=== PATIENT | male | born 1955 | race African-American/Black ===

== ENCOUNTER 2017-05-12 10:37 | Outpatient (CLI) | payer OTHER ==
[~2017-05-12 10:37] MED LIST: HYDR25TA4 PO; KCL10CCR PO; LISI10TA2 PO; LOSA1TAB23 PO; PROP80CA4 PO
== END 2017-05-12 10:45 | disposition home or self-care (01) ==
LOC: SLEEP 10:37
PROVIDERS: ATTEND Family Medicine
DX: G47.33 Obstructive sleep apnea (adult) (pediatric) (principal)

== ENCOUNTER 2017-05-28 20:04 | Outpatient (CLI) | payer OTHER | END 2017-05-29 06:27 | disposition home or self-care (01) | LOC: SLEEP 20:04 | PROVIDERS: ATTEND Nurse Practitioner | DX: G47.33 Obstructive sleep apnea (adult) (pediatric) (principal) | CPT/HCPCS: 95811 ==

== ENCOUNTER → 2017-06-06 | Outpatient (CLI) | payer OTHER ==
[2017-06-06 10:36] LABS: BASOPHILS % (AUTO) 1 % (0-10); EOSINOPHILS # (AUTO) 0.2 10^3/uL (0.0-0.3); EOSINOPHILS % (AUTO) 3 % (0-10); HEMATOCRIT 48 % (40-54); HEMOGLOBIN 15.5 G/DL (13.3-17.7); LYMPHOCYTES # (AUTO) 2.3 X 10^3 (1.0-4.0); LYMPHOCYTES % (AUTO) 40 % (12-44); MEAN CORPUSCULAR HEMOGLOBIN 30 PG (25-34); MEAN CORPUSCULAR HGB CONC 32 G/DL (32-36); MEAN CORPUSCULAR VOLUME 91 FL (80-99); MEAN PLATELET VOLUME 10.9 FL (7.4-10.4); MONOCYTES # (AUTO) 0.6 X 10^3 (0.0-1.0); MONOCYTES % (AUTO) 11 % (0-12); NEUTROPHILS # (AUTO) 2.5 X 10^3 (1.8-7.8); NEUTROPHILS % (AUTO) 45 % (42-75); PLATELET COUNT 211 10^3/uL (130-400); RED BLOOD COUNT 5.23 10^6/uL (4.35-5.85); RED CELL DISTRIBUTION WIDTH 14.3 % (10.0-14.5); WHITE BLOOD COUNT 5.7 10^3/uL (4.3-11.0)
[2017-06-06 10:53] LABS: ALANINE AMINOTRANSFERASE 28 U/L (0-55); ALBUMIN 3.7 GM/DL (3.2-4.5); ALKALINE PHOSPHATASE 50 U/L (40-136); BILIRUBIN,TOTAL 0.5 MG/DL (0.1-1.0); BUN/CREATININE RATIO 18; CARBON DIOXIDE 25 MMOL/L (21-32); CHLORIDE 106 MMOL/L (98-107); CHOLESTEROL 204 MG/DL (< 200); CREATININE SERUM 0.87 MG/DL (0.60-1.30); GFR ESTIMATED > 60; GLUCOSE 104 MG/DL (70-105); HDL CHOLESTEROL 36 MG/DL (40-60); MAGNESIUM 1.7 MG/DL (1.8-2.4); POTASSIUM 3.8 MMOL/L (3.6-5.0); SODIUM 142 MMOL/L (135-145); TOTAL PROTEIN 7.1 GM/DL (6.4-8.2); TRIGLYCERIDES 153 MG/DL (<150); VLDL CHOLESTEROL 31 MG/DL (5-40)
== END ==
LOC: EDBD → LAB 10:00
PROVIDERS: ATTEND Nurse Practitioner Family
DX: I47.1 Supraventricular tachycardia (principal); R94.31 Abnormal electrocardiogram [ECG] [EKG]; I10 Essential (primary) hypertension; M79.89 Other specified soft tissue disorders
CPT/HCPCS: 36415; 80053; 80061; 83735; 85025

== ENCOUNTER → 2017-06-08 | Outpatient (CLI) | payer OTHER | LOC: CARD 09:53 | PROVIDERS: ATTEND Nurse Practitioner Family | DX: I47.1 Supraventricular tachycardia (principal); R94.31 Abnormal electrocardiogram [ECG] [EKG]; I10 Essential (primary) hypertension; M79.89 Other specified soft tissue disorders | CPT/HCPCS: 93306 ==

== ENCOUNTER → 2017-06-09 | Outpatient (CLI) | payer OTHER ==
[~2017-06-09] MED LIST changes: +REGADENOSON 0.4 MG/5 ML SYR (LEXISCAN) IV ONE
[2017-06-09] MEDS: CATHETER FLUSH 10 ML SYR IV PRN ×2 (08:09→09:33)
[2017-06-09 09:31] VITALS: BP 178/105
== END ==
LOC: CARD 07:27 → EDBD 08:00
PROVIDERS: ATTEND Nurse Practitioner Family
DX: I47.1 Supraventricular tachycardia (principal); R94.31 Abnormal electrocardiogram [ECG] [EKG]; I10 Essential (primary) hypertension; M79.89 Other specified soft tissue disorders
CPT/HCPCS: 78452; 93017

== ENCOUNTER → 2017-10-05 | Outpatient (RCR) | payer OTHER ==
[~2017-10-05] MED LIST changes: -REGADENOSON 0.4 MG/5 ML SYR (LEXISCAN) IV ONE
== END | disposition home or self-care (01) ==
LOC: CR3 09-05 08:00
PROVIDERS: ATTEND Psychiatry & Neurology Neurology
DX: Z29.8 Encounter for other specified prophylactic measures (principal)

== ENCOUNTER 2017-10-27 08:00 | Outpatient (RCR) | payer OTHER | END 2017-11-06 | disposition home or self-care (01) | LOC: CR3 08:00 | PROVIDERS: ATTEND Psychiatry & Neurology Neurology | DX: Z29.8 Encounter for other specified prophylactic measures (principal) ==

== ENCOUNTER → 2017-12-21 | Outpatient (RCR) | payer OTHER | END | disposition home or self-care (01) | LOC: CR3 11-21 08:30 | PROVIDERS: ATTEND Psychiatry & Neurology Neurology | DX: Z29.8 Encounter for other specified prophylactic measures (principal) ==

== ENCOUNTER 2018-01-19 06:00 | Outpatient (RCR) | payer OTHER | END 2018-01-21 | disposition home or self-care (01) | LOC: CR3 06:00 | PROVIDERS: ATTEND Psychiatry & Neurology Neurology | DX: Z29.8 Encounter for other specified prophylactic measures (principal) ==

== ENCOUNTER → 2018-02-22 | Outpatient (RCR) | payer OTHER | END | disposition home or self-care (01) | LOC: CR3 01-23 08:00 | PROVIDERS: ATTEND Psychiatry & Neurology Neurology | DX: Z29.8 Encounter for other specified prophylactic measures (principal) ==

== ENCOUNTER 2018-03-24 18:01 | Outpatient (RCR) | payer OTHER | END 2018-03-25 | disposition home or self-care (01) | LOC: CR3 18:01 | PROVIDERS: ATTEND Psychiatry & Neurology Neurology | DX: Z29.8 Encounter for other specified prophylactic measures (principal) ==

== ENCOUNTER → 2018-03-27 | Outpatient (CLI) | payer OTHER | LOC: LAB 10:01 | PROVIDERS: ATTEND Family Medicine | DX: Z12.5 Encounter for screening for malignant neoplasm of prostate (principal) | CPT/HCPCS: 36415; 84153 ==

== ENCOUNTER 2018-04-24 08:18 | Outpatient (RCR) | payer OTHER | END 2018-04-26 | disposition home or self-care (01) | LOC: CR3 08:18 | PROVIDERS: ATTEND Psychiatry & Neurology Neurology | DX: Z29.8 Encounter for other specified prophylactic measures (principal) ==

== ENCOUNTER 2018-06-07 08:13 | Outpatient (RCR) | payer OTHER | END 2018-06-08 | disposition home or self-care (01) | LOC: CR3 08:13 | PROVIDERS: ATTEND Psychiatry & Neurology Neurology | DX: Z29.8 Encounter for other specified prophylactic measures (principal) ==

== ENCOUNTER 2018-07-07 08:21 | Outpatient (RCR) | payer OTHER | END 2018-07-09 | disposition home or self-care (01) | LOC: CR3 08:21 | PROVIDERS: ATTEND Psychiatry & Neurology Neurology | DX: Z29.8 Encounter for other specified prophylactic measures (principal) ==

== ENCOUNTER 2018-08-09 08:08 | Outpatient (RCR) | payer OTHER | END 2018-08-10 | disposition home or self-care (01) | LOC: CR3 08:08 | PROVIDERS: ATTEND Psychiatry & Neurology Neurology | DX: Z29.8 Encounter for other specified prophylactic measures (principal) ==

== ENCOUNTER 2018-09-08 08:10 | Outpatient (RCR) | payer OTHER | END 2018-09-10 | disposition home or self-care (01) | LOC: CR3 08:10 | PROVIDERS: ATTEND Psychiatry & Neurology Neurology | DX: Z29.8 Encounter for other specified prophylactic measures (principal) ==

== ENCOUNTER → 2018-10-06 | Outpatient (CLI) | payer MEDICARE, OTHER ==
[2018-10-06 10:16] LABS: ALANINE AMINOTRANSFERASE 32 U/L (0-55); ALBUMIN 4.1 GM/DL (3.2-4.5); ALKALINE PHOSPHATASE 56 U/L (40-136); BILIRUBIN,TOTAL 0.6 MG/DL (0.1-1.0); BUN/CREATININE RATIO 19; CALCIUM 9.5 MG/DL (8.5-10.1); CARBON DIOXIDE 22 MMOL/L (21-32); CHLORIDE 110 MMOL/L (98-107); CHOLESTEROL 204 MG/DL (< 200); CREATININE SERUM 1.08 MG/DL (0.60-1.30); GFR ESTIMATED > 60; GLUCOSE 104 MG/DL (70-105); HDL CHOLESTEROL 38 MG/DL (40-60); POTASSIUM 4.1 MMOL/L (3.6-5.0); SODIUM 142 MMOL/L (135-145); TOTAL PROTEIN 7.7 GM/DL (6.4-8.2); TRIGLYCERIDES 112 MG/DL (<150); VLDL CHOLESTEROL 22 MG/DL (5-40)
== END ==
LOC: LAB 09:41
PROVIDERS: ATTEND Nurse Practitioner Family
DX: I10 Essential (primary) hypertension (principal); I70.59 Other atherosclerosis of nonautologous biological bypass graft(s) of the extremities
CPT/HCPCS: 36415; 80053; 80061

== ENCOUNTER → 2018-10-11 | Outpatient (RCR) | payer OTHER | END | disposition home or self-care (01) | LOC: CR3 09-11 09:51 | PROVIDERS: ATTEND Psychiatry & Neurology Neurology | DX: Z29.8 Encounter for other specified prophylactic measures (principal) ==

== ENCOUNTER 2018-11-10 09:31 | Outpatient (RCR) | payer MEDICARE, OTHER | END 2018-11-11 | disposition home or self-care (01) | LOC: CR3 09:31 | PROVIDERS: ATTEND Psychiatry & Neurology Neurology | DX: Z29.8 Encounter for other specified prophylactic measures (principal) ==

== ENCOUNTER → 2018-11-30 | Outpatient (CLI) | payer MEDICARE, OTHER ==
[2018-11-30 10:18] LABS: ALANINE AMINOTRANSFERASE 52 U/L (0-55); ALBUMIN 3.8 GM/DL (3.2-4.5); ALKALINE PHOSPHATASE 56 U/L (40-136); BILIRUBIN,TOTAL 0.7 MG/DL (0.1-1.0); BUN/CREATININE RATIO 14; CALCIUM 9.3 MG/DL (8.5-10.1); CARBON DIOXIDE 25 MMOL/L (21-32); CHLORIDE 108 MMOL/L (98-107); CHOLESTEROL 160 MG/DL (< 200); CREATININE SERUM 1.12 MG/DL (0.60-1.30); GFR ESTIMATED > 60; GLUCOSE 101 MG/DL (70-105); HDL CHOLESTEROL 31 MG/DL (40-60); POTASSIUM 3.9 MMOL/L (3.6-5.0); SODIUM 143 MMOL/L (135-145); TOTAL PROTEIN 7.6 GM/DL (6.4-8.2); TRIGLYCERIDES 93 MG/DL (<150); VLDL CHOLESTEROL 19 MG/DL (5-40)
== END ==
LOC: LAB 09:43
PROVIDERS: ATTEND Nurse Practitioner Family
DX: I10 Essential (primary) hypertension (principal); E78.5 Hyperlipidemia, unspecified; G47.33 Obstructive sleep apnea (adult) (pediatric); I73.9 Peripheral vascular disease, unspecified; E66.8 Other obesity
CPT/HCPCS: 36415; 80053; 80061

== ENCOUNTER → 2018-12-13 | Outpatient (RCR) | payer MEDICARE, OTHER | END | disposition home or self-care (01) | LOC: CR3 11-13 08:00 | PROVIDERS: ATTEND Psychiatry & Neurology Neurology | DX: Z29.8 Encounter for other specified prophylactic measures (principal) ==

== ENCOUNTER 2019-01-11 06:00 | Outpatient (RCR) | payer MEDICARE, OTHER | END 2019-01-13 | disposition home or self-care (01) | LOC: CR3 06:00 | PROVIDERS: ATTEND Psychiatry & Neurology Neurology | DX: Z00.00 Encounter for general adult medical examination without abnormal findings (principal); Z29.8 Encounter for other specified prophylactic measures ==

== ENCOUNTER → 2019-02-14 | Outpatient (RCR) | payer MEDICARE, OTHER | END | disposition home or self-care (01) | LOC: CR3 01-15 08:30 | PROVIDERS: ATTEND Psychiatry & Neurology Neurology | DX: Z00.00 Encounter for general adult medical examination without abnormal findings (principal); Z29.8 Encounter for other specified prophylactic measures ==

== ENCOUNTER 2019-03-16 08:31 | Outpatient (RCR) | payer MEDICARE, OTHER | END 2019-03-17 | disposition home or self-care (01) | LOC: CR3 08:31 | PROVIDERS: ATTEND Psychiatry & Neurology Neurology | DX: Z29.8 Encounter for other specified prophylactic measures (principal) ==

== ENCOUNTER → 2019-04-18 | Outpatient (RCR) | payer MEDICARE, OTHER | END | disposition home or self-care (01) | LOC: CR3 03-19 08:00 | PROVIDERS: ATTEND Psychiatry & Neurology Neurology | DX: Z29.8 Encounter for other specified prophylactic measures (principal) ==

== ENCOUNTER 2019-05-18 08:25 | Outpatient (RCR) | payer MEDICARE, OTHER | END 2019-05-19 | disposition home or self-care (01) | LOC: CR3 08:25 | PROVIDERS: ATTEND Psychiatry & Neurology Neurology | DX: Z29.8 Encounter for other specified prophylactic measures (principal) ==

== ENCOUNTER → 2019-06-20 | Outpatient (RCR) | payer MEDICARE, OTHER | END | disposition home or self-care (01) | LOC: CR3 05-21 08:36 | PROVIDERS: ATTEND Psychiatry & Neurology Neurology | DX: Z29.8 Encounter for other specified prophylactic measures (principal) ==

== ENCOUNTER 2019-07-18 08:24 | Outpatient (RCR) | payer MEDICARE, OTHER | END 2019-07-21 | disposition home or self-care (01) | LOC: CR3 08:24 | PROVIDERS: ATTEND Psychiatry & Neurology Neurology | DX: Z29.8 Encounter for other specified prophylactic measures (principal) ==

== ENCOUNTER 2019-08-13 09:08 | Outpatient (RCR) | payer MEDICARE, OTHER ==
--- NOTE | 2019-08-14 17:22 | NUR ---
CONTACTED PT FOR INFECTIOUS DISEASE SCREENING (PER ADMINISTRATION ORDERS); PT STATED NO COUGH OR FEVER IN PAST 14 DAYS; OR TRAVELING OUTSIDE [place]
== END 2019-08-22 | disposition home or self-care (01) ==
LOC: CR3 09:08
PROVIDERS: ATTEND Psychiatry & Neurology Neurology
DX: Z29.8 Encounter for other specified prophylactic measures (principal)

== ENCOUNTER → 2019-12-21 | Outpatient (CLI) | payer MEDICARE, OTHER ==
[2019-12-21 08:26] LABS: BASOPHILS % (AUTO) 1 % (0-10); EOSINOPHILS # (AUTO) 0.2 10^3/uL (0.0-0.3); EOSINOPHILS % (AUTO) 4 % (0-10); HEMATOCRIT 43 % (40-54); HEMOGLOBIN 14.3 G/DL (13.3-17.7); LYMPHOCYTES # (AUTO) 1.8 X 10^3 (1.0-4.0); LYMPHOCYTES % (AUTO) 31 % (12-44); MEAN CORPUSCULAR HEMOGLOBIN 31 PG (25-34); MEAN CORPUSCULAR HGB CONC 33 G/DL (32-36); MEAN CORPUSCULAR VOLUME 93 FL (80-99); MEAN PLATELET VOLUME 10.8 FL (7.4-10.4); MONOCYTES # (AUTO) 1.1 X 10^3 (0.0-1.0); MONOCYTES % (AUTO) 20 % (0-12); NEUTROPHILS # (AUTO) 2.6 X 10^3 (1.8-7.8); NEUTROPHILS % (AUTO) 45 % (42-75); PLATELET COUNT 183 10^3/uL (130-400); RED CELL DISTRIBUTION WIDTH 15.5 % (10.0-14.5); WHITE BLOOD COUNT 5.7 10^3/uL (4.3-11.0)
[2019-12-21 08:40] LABS: CHLORIDE 110 MMOL/L (98-107); POTASSIUM 3.7 MMOL/L (3.6-5.0); SODIUM 142 MMOL/L (135-145)
[2019-12-21 08:41] LABS: CALCIUM 9.3 MG/DL (8.5-10.1)
[2019-12-21 08:42] LABS: GLUCOSE 109 MG/DL (70-105); TOTAL PROTEIN 7.9 GM/DL (6.4-8.2); TRIGLYCERIDES 77 MG/DL (<150); VLDL CHOLESTEROL 15 MG/DL (5-40)
[2019-12-21 08:43] LABS: CARBON DIOXIDE 21 MMOL/L (21-32)
[2019-12-21 08:44] LABS: BILIRUBIN,TOTAL 1.1 MG/DL (0.1-1.0)
[2019-12-21 08:46] LABS: ALKALINE PHOSPHATASE 73 U/L (40-136); GFR ESTIMATED > 60
[2019-12-21 08:47] LABS: BUN/CREATININE RATIO 16; CHOLESTEROL 149 MG/DL (< 200)
[2019-12-21 08:48] LABS: HDL CHOLESTEROL 32 MG/DL (40-60)
[2019-12-21 08:49] LABS: ALANINE AMINOTRANSFERASE 18 U/L (0-55); MAGNESIUM 1.8 MG/DL (1.6-2.4)
[2019-12-21 08:52] LABS: ANISOCYTOSIS SLIGHT; EOSINOPHILS % (MANUAL) 4 %; LYMPHOCYTES % (MANUAL) 30 %; MONOCYTES % (MANUAL) 16 %; NEUTROPHILS % (MANUAL) 50 %
[2019-12-21 08:57] LABS: ERYTHROCYTE SEDIMENTATION RATE 8 MM/HR (0-30)
== END ==
LOC: LAB 08:00
PROVIDERS: ATTEND Internal Medicine Cardiovascular Disease
DX: I48.0 Paroxysmal atrial fibrillation (principal); I10 Essential (primary) hypertension; R94.31 Abnormal electrocardiogram [ECG] [EKG]; R06.09 Other forms of dyspnea; M79.89 Other specified soft tissue disorders; R03.0 Elevated blood-pressure reading, without diagnosis of hypertension
CPT/HCPCS: 36415; 80053; 80061; 83735; 84443; 85007; 85027; 85652

== ENCOUNTER → 2019-12-25 | Outpatient (CLI) | payer MEDICARE, OTHER | LOC: CARD 10:41 | PROVIDERS: ATTEND Internal Medicine Cardiovascular Disease | DX: I48.0 Paroxysmal atrial fibrillation (principal); I11.9 Hypertensive heart disease without heart failure; M79.89 Other specified soft tissue disorders; R94.31 Abnormal electrocardiogram [ECG] [EKG]; R06.09 Other forms of dyspnea | CPT/HCPCS: 93225; 93226; 93306 ==

== ENCOUNTER → 2019-12-28 | Outpatient (CLI) | payer MEDICARE, OTHER ==
[~2019-12-28] VITALS: Ht 175 cm; Wt 147.0 kg
[~2019-12-28] MED LIST changes: +CATHETER FLUSH 10 ML SYR IV PRN; +REGADENOSON 0.4 MG/5 ML SYR (LEXISCAN) IV ONE
[2019-12-28 08:58] VITALS: BP 158/116
--- NOTE | 2020-01-01 13:18 | STRESS TEST ---
DATE OF SERVICE: 12/28/2019 RESTING AND POST REGADENOSON TECHNETIUM-99M TETROFOSMIN SPECT CT IMAGING ORDERING PHYSICIAN: Dr. Siu. PRIMARY PHYSICIAN: Dr. Nicole. CLINICAL DIAGNOSES: Shortness of breath, abnormal electrocardiogram and paroxysmal atrial fibrillation. Baseline images were carried out after injection of 10.74 mCi of technetium-99m Tetrofosmin. This was followed by 0.4 mg Regadenoson and 31.4 mCi of technetium-99m Tetrofosmin for stress imaging. The electrocardiogram showed atrial flutter with variable conduction over the right bundle branch block. The electrocardiogram did not change significantly with the Regadenoson infusion. The patient tolerated the procedure well. Review of images at rest and following stress does not indicate any distinct perfusion defects consistent with significant myocardial ischemia or infarction. Tracer uptake appears somewhat patchy both at rest and following Regadenoson infusion. This is probably related to the patient's body habitus. There is no distinct evidence of ischemia or infarction. Gated images did not show significant regional wall motion abnormality. Left ventricular ejection fraction is calculated to be 52%. Left ventricular end diastolic volume is 86 mL. TID is absent (1.05). CONCLUSIONS: 1. No evidence of any significant myocardial ischemia or infarction. 2. Normal regional wall motion. 3. Normal global left ventricular systolic function with a calculated ejection fraction of 52%. Job ID: [id number] DocumentID: [id number] Dictated Date: 01/01/2020 13:09:50 Nutrition Director Date: 01/01/2020 13:17:22 Dictated By: LIO SIU MD, MA, FACP, FACC,
== END ==
LOC: CARD 07:30
PROVIDERS: ATTEND Internal Medicine Cardiovascular Disease
DX: I48.0 Paroxysmal atrial fibrillation (principal); I10 Essential (primary) hypertension; M79.89 Other specified soft tissue disorders; R94.31 Abnormal electrocardiogram [ECG] [EKG]
CPT/HCPCS: 78452; 93017; A9502

== ENCOUNTER → 2020-02-08 | Outpatient (CLI) | payer MEDICARE, OTHER ==
[~2020-02-08] MED LIST changes: -CATHETER FLUSH 10 ML SYR IV PRN; -REGADENOSON 0.4 MG/5 ML SYR (LEXISCAN) IV ONE
== END ==
LOC: LABNPT 05:52
PROVIDERS: ATTEND Otolaryngology Otolaryngology/Facial Plastic Surgery
DX: G47.33 Obstructive sleep apnea (adult) (pediatric) (principal); Z20.828 Contact with and (suspected) exposure to other viral communicable diseases
CPT/HCPCS: 87635

== ENCOUNTER 2020-02-13 19:31 | Outpatient (CLI) | payer MEDICARE, OTHER | END 2020-02-14 05:45 | disposition home or self-care (01) | LOC: SLEEP 19:31 | PROVIDERS: ATTEND Nurse Practitioner | DX: G47.33 Obstructive sleep apnea (adult) (pediatric) (principal); G47.10 Hypersomnia, unspecified; Z20.828 Contact with and (suspected) exposure to other viral communicable diseases | CPT/HCPCS: 95811 ==

== ENCOUNTER → 2020-09-17 | Outpatient (RCR) | payer MEDICARE, OTHER | END | disposition home or self-care (01) | LOC: CR3 08-18 09:32 | PROVIDERS: ATTEND Psychiatry & Neurology Neurology | DX: Z29.8 Encounter for other specified prophylactic measures (principal) ==

== ENCOUNTER 2020-10-17 09:33 | Outpatient (RCR) | payer MEDICARE, OTHER | END 2020-10-19 | disposition home or self-care (01) | LOC: CR3 09:33 | PROVIDERS: ATTEND Psychiatry & Neurology Neurology | DX: Z29.8 Encounter for other specified prophylactic measures (principal) ==

== ENCOUNTER → 2020-11-19 | Outpatient (RCR) | payer MEDICARE, OTHER | END | disposition home or self-care (01) | LOC: CR3 10-20 08:19 | PROVIDERS: ATTEND Psychiatry & Neurology Neurology | DX: Z29.8 Encounter for other specified prophylactic measures (principal) ==

== ENCOUNTER 2020-12-17 10:09 | Outpatient (RCR) | payer MEDICARE, OTHER | END 2020-12-21 | disposition home or self-care (01) | LOC: CR3 10:09 | PROVIDERS: ATTEND Psychiatry & Neurology Neurology | DX: Z29.8 Encounter for other specified prophylactic measures (principal) ==

== ENCOUNTER → 2021-01-21 | Outpatient (RCR) | payer MEDICARE, OTHER | END | disposition home or self-care (01) | LOC: CR3 12-22 07:22 | PROVIDERS: ATTEND Psychiatry & Neurology Neurology | DX: Z29.8 Encounter for other specified prophylactic measures (principal) ==

== ENCOUNTER → 2021-01-23 | Outpatient (CLI) | payer MEDICARE, OTHER ==
[2021-01-23 09:22] LABS: CALCIUM 9.7 MG/DL (8.5-10.1); CREATININE SERUM 0.99 MG/DL (0.60-1.30); MAGNESIUM 1.9 MG/DL (1.6-2.4); POTASSIUM 3.6 MMOL/L (3.6-5.0)
== END ==
LOC: LAB 08:39
PROVIDERS: ATTEND Nurse Practitioner Family
DX: I10 Essential (primary) hypertension (principal)
CPT/HCPCS: 36415; 80048; 83735

== ENCOUNTER 2021-02-20 09:57 | Outpatient (RCR) | payer MEDICARE, OTHER | END 2021-02-22 | disposition home or self-care (01) | LOC: CR3 09:57 | PROVIDERS: ATTEND Psychiatry & Neurology Neurology | DX: Z29.8 Encounter for other specified prophylactic measures (principal) ==

== ENCOUNTER → 2021-02-24 | Outpatient (CLI) | payer MEDICARE, OTHER ==
[2021-02-24 12:47] LABS: CALCIUM 9.6 MG/DL (8.5-10.1); CREATININE SERUM 0.89 MG/DL (0.60-1.30); MAGNESIUM 1.9 MG/DL (1.6-2.4); POTASSIUM 4.1 MMOL/L (3.6-5.0)
== END ==
LOC: LAB 12:05
PROVIDERS: ATTEND Nurse Practitioner Family
DX: I10 Essential (primary) hypertension (principal)
CPT/HCPCS: 36415; 80048; 83735

== ENCOUNTER → 2021-03-25 | Outpatient (RCR) | payer MEDICARE, OTHER | END | disposition home or self-care (01) | LOC: CR3 02-23 10:17 | PROVIDERS: ATTEND Psychiatry & Neurology Neurology | DX: Z29.8 Encounter for other specified prophylactic measures (principal) ==

== ENCOUNTER 2021-04-24 08:49 | Outpatient (RCR) | payer MEDICARE, OTHER | END 2021-04-26 | disposition home or self-care (01) | LOC: CR3 08:49 | PROVIDERS: ATTEND Psychiatry & Neurology Neurology | DX: Z29.8 Encounter for other specified prophylactic measures (principal) ==

== ENCOUNTER → 2021-05-27 | Outpatient (RCR) | payer MEDICARE, OTHER | LOC: CR3 04-27 09:25 | PROVIDERS: ATTEND Psychiatry & Neurology Neurology | DX: Z29.8 Encounter for other specified prophylactic measures (principal) ==

== ENCOUNTER 2021-07-03 08:53 | Outpatient (RCR) | payer MEDICARE, OTHER | END 2021-07-05 | disposition home or self-care (01) | LOC: CR3 08:53 | PROVIDERS: ATTEND Psychiatry & Neurology Neurology | DX: Z29.8 Encounter for other specified prophylactic measures (principal) ==

== ENCOUNTER → 2021-08-05 | Outpatient (RCR) | payer MEDICARE, OTHER | END | disposition home or self-care (01) | LOC: CR3 07-06 08:49 | PROVIDERS: ATTEND Psychiatry & Neurology Neurology | DX: Z29.8 Encounter for other specified prophylactic measures (principal) ==

== ENCOUNTER 2021-10-02 09:25 | Outpatient (RCR) | payer MEDICARE, OTHER | END 2021-10-03 | disposition home or self-care (01) | LOC: CR3 09:25 | PROVIDERS: ATTEND Psychiatry & Neurology Neurology | DX: Z29.8 Encounter for other specified prophylactic measures (principal) ==

== ENCOUNTER → 2021-11-17 | Outpatient (CLI) | payer MEDICARE, OTHER | LOC: CARD 13:22 | PROVIDERS: ATTEND Nurse Practitioner Family | DX: I51.7 Cardiomegaly (principal) | CPT/HCPCS: 93306 ==

== ENCOUNTER 2021-12-02 14:27 | Outpatient (RCR) | payer MEDICARE, OTHER | END 2021-12-03 | disposition home or self-care (01) | LOC: CR3 14:27 | PROVIDERS: ATTEND Psychiatry & Neurology Neurology | DX: Z29.8 Encounter for other specified prophylactic measures (principal) ==

== ENCOUNTER 2022-02-01 14:55 | Outpatient (RCR) | payer MEDICARE, OTHER | END 2022-02-02 | disposition home or self-care (01) | LOC: CR3 14:55 | PROVIDERS: ATTEND Psychiatry & Neurology Neurology | DX: Z29.8 Encounter for other specified prophylactic measures (principal) | CPT/HCPCS: 93798 ==

== ENCOUNTER → 2022-03-05 | Outpatient (RCR) | payer MEDICARE, OTHER | END | disposition home or self-care (01) | LOC: CR3 02-03 16:23 | PROVIDERS: ATTEND Psychiatry & Neurology Neurology | DX: Z29.8 Encounter for other specified prophylactic measures (principal) ==

== ENCOUNTER 2022-04-28 10:40 | Outpatient (RCR) | payer MEDICARE, OTHER | END 2022-05-05 | disposition home or self-care (01) | LOC: CR3 10:40 | PROVIDERS: ATTEND Psychiatry & Neurology Neurology | DX: Z29.8 Encounter for other specified prophylactic measures (principal) ==

== ENCOUNTER 2022-07-02 10:15 | Outpatient (RCR) | payer MEDICARE, OTHER | END 2022-07-05 | disposition home or self-care (01) | LOC: CR3 10:15 | PROVIDERS: ATTEND Psychiatry & Neurology Neurology | DX: Z29.8 Encounter for other specified prophylactic measures (principal) ==

== ENCOUNTER 2022-09-01 10:28 | Outpatient (RCR) | payer MEDICARE, OTHER | END 2022-09-02 | disposition home or self-care (01) | LOC: CR3 10:28 | PROVIDERS: ATTEND Psychiatry & Neurology Neurology | DX: Z29.8 Encounter for other specified prophylactic measures (principal) ==

== ENCOUNTER → 2022-10-07 | Outpatient (CLI) | payer MEDICARE, OTHER ==
[2022-10-07 11:28] LABS: BASOPHILS % (AUTO) 1 % (0-10); EOSINOPHILS # (AUTO) 0.2 10^3/uL (0.0-0.3); EOSINOPHILS % (AUTO) 3 % (0-10); HEMATOCRIT 46 % (40-54); HEMOGLOBIN 15.3 g/dL (13.3-17.7); LYMPHOCYTES # (AUTO) 1.8 10^3/uL (1.0-4.0); LYMPHOCYTES % (AUTO) 32 % (12-44); MEAN CORPUSCULAR HEMOGLOBIN 30 pg (25-34); MEAN CORPUSCULAR HGB CONC 33 g/dL (32-36); MEAN CORPUSCULAR VOLUME 92 fL (80-99); MEAN PLATELET VOLUME 10.1 fL (9.0-12.2); MONOCYTES # (AUTO) 0.8 10^3/uL (0.0-1.0); MONOCYTES % (AUTO) 15 % (0-12); NEUTROPHILS # (AUTO) 2.8 10^3/uL (1.8-7.8); NEUTROPHILS % (AUTO) 49 % (42-75); PLATELET COUNT 202 10^3/uL (130-400); WHITE BLOOD COUNT 5.7 10^3/uL (4.3-11.0)
[2022-10-07 11:49] LABS: POTASSIUM 3.7 MMOL/L (3.6-5.0)
[2022-10-07 11:50] LABS: ALBUMIN 3.8 GM/DL (3.2-4.5)
[2022-10-07 11:51] LABS: CALCIUM 9.1 MG/DL (8.5-10.1)
[2022-10-07 11:52] LABS: TOTAL PROTEIN 7.5 GM/DL (6.4-8.2)
[2022-10-07 11:54] LABS: BILIRUBIN,TOTAL 0.6 MG/DL (0.1-1.0)
[2022-10-07 11:56] LABS: CREATININE SERUM 0.98 MG/DL (0.60-1.30)
== END ==
LOC: LAB 11:11
PROVIDERS: ATTEND Internal Medicine Cardiovascular Disease
DX: I10 Essential (primary) hypertension (principal); I49.8 Other specified cardiac arrhythmias; I48.21 Permanent atrial fibrillation; E78.2 Mixed hyperlipidemia; G47.33 Obstructive sleep apnea (adult) (pediatric); R06.09 Other forms of dyspnea; I45.19 Other right bundle-branch block
CPT/HCPCS: 36415; 80053; 80061; 84443; 85025

== ENCOUNTER → 2022-10-07 | Outpatient (CLI) | payer MEDICARE, OTHER ==
[2022-10-07 12:24] LABS: CREATININE SERUM 0.98 MG/DL (0.60-1.30); POTASSIUM 3.7 MMOL/L (3.6-5.0)
[2022-10-07 12:25] LABS: ALBUMIN 3.8 GM/DL (3.2-4.5); BILIRUBIN,TOTAL 0.6 MG/DL (0.1-1.0); CALCIUM 9.1 MG/DL (8.5-10.1); TOTAL PROTEIN 7.5 GM/DL (6.4-8.2)
== END ==
LOC: LAB 11:09
PROVIDERS: ATTEND Family Medicine
DX: I10 Essential (primary) hypertension (principal); N40.0 Benign prostatic hyperplasia without lower urinary tract symptoms
CPT/HCPCS: 36415; 80053; 84153

== ENCOUNTER 2022-10-29 10:29 | Outpatient (RCR) | payer MEDICARE, OTHER | END 2022-11-02 | disposition home or self-care (01) | LOC: CR3 10:29 | PROVIDERS: ATTEND Psychiatry & Neurology Neurology | DX: Z29.8 Encounter for other specified prophylactic measures (principal) ==

== ENCOUNTER 2022-12-01 11:27 | Outpatient (RCR) | payer MEDICARE, OTHER | END 2022-12-03 | disposition home or self-care (01) | LOC: CR3 11:27 | PROVIDERS: ATTEND Psychiatry & Neurology Neurology | DX: Z29.8 Encounter for other specified prophylactic measures (principal) ==

== ENCOUNTER → 2022-12-21 | Outpatient (CLI) | payer MEDICARE, OTHER ==
[2022-12-21 10:31] LABS: ALBUMIN 3.8 GM/DL (3.2-4.5)
[2022-12-21 10:32] LABS: CALCIUM 9.2 MG/DL (8.5-10.1)
[2022-12-21 10:34] LABS: TOTAL PROTEIN 7.4 GM/DL (6.4-8.2)
[2022-12-21 10:35] LABS: BILIRUBIN,TOTAL 0.7 MG/DL (0.1-1.0)
[2022-12-21 10:37] LABS: CREATININE SERUM 1.01 MG/DL (0.60-1.30)
== END ==
LOC: LAB 10:10
PROVIDERS: ATTEND Nurse Practitioner Family
DX: I49.8 Other specified cardiac arrhythmias (principal); I48.21 Permanent atrial fibrillation; I10 Essential (primary) hypertension; E78.2 Mixed hyperlipidemia; G47.33 Obstructive sleep apnea (adult) (pediatric); I45.19 Other right bundle-branch block
CPT/HCPCS: 36415; 80053; 80061

== ENCOUNTER → 2023-02-02 | Outpatient (RCR) | payer MEDICARE, OTHER | END | disposition home or self-care (01) | LOC: CR3 12-08 10:06 | PROVIDERS: ATTEND Psychiatry & Neurology Neurology | DX: Z29.8 Encounter for other specified prophylactic measures (principal) ==

== ENCOUNTER → 2023-04-04 | Outpatient (RCR) | payer MEDICARE, OTHER | END | disposition home or self-care (01) | LOC: CR3 02-04 09:57 | PROVIDERS: ATTEND Psychiatry & Neurology Neurology | DX: Z01.89 Encounter for other specified special examinations (principal) ==